=== PATIENT | female | born 1975 | race Caucasian/White ===

== ENCOUNTER 2017-12-20 22:17 | Emergency (ER) | payer SELFPAY ==
[~2017-12-20] VITALS: Ht 167.6 cm; Wt 59.0 kg
[2017-12-21 00:07] LABS: BASOPHILS % 1.4 % (0.0-2.0); EOSINOPHILS % 1.5 % (0.0-5.0); HEMATOCRIT. 31.1 % (36.0-48.0); HEMOGLOBIN. 10.3 g/dL (12.0-16.0); LYMPHOCYTES % 66.5 % (20.0-50.0); MEAN CORPUSCULAR HEMOGLOBIN 28.4 pg (28.0-32.0); MEAN CORPUSCULAR VOLUME 85.9 fL (81.0-99.0); MEAN PLATELET VOLUME 6.5 fl (7.4-10.4); MONOCYTES % 10.5 % (2.0-8.0); NEUTROPHILS % 20.1 % (40.0-76.0); PLATELET 216 x1000/uL (130-400); RED BLOOD CELL COUNT 3.62 mill/uL (4.2-5.4); RED CELL DISTRIBUTION WIDTH 19.9 % (11.6-14.6)
[2017-12-21 00:14] LABS: CHLORIDE 108 mEq/L (98-107)
[2017-12-21 00:30] VITALS: BP 98/65
[2017-12-21 00:43] LABS: ETHANOL BLOOD 408 mg/dL
== END 2017-12-21 00:52 | disposition home or self-care (01) ==
LOC: ER 22:17
DX: D72.819 Decreased white blood cell count, unspecified (principal); F10.129 Alcohol abuse with intoxication, unspecified; Y90.8 Blood alcohol level of 240 mg/100 ml or more; F91.8 Other conduct disorders; R10.2 Pelvic and perineal pain; Z59.0 Homelessness; S00.81XA Abrasion of other part of head, initial encounter; X58.XXXA Exposure to other specified factors, initial encounter; Y93.9 Activity, unspecified; Y92.9 Unspecified place or not applicable; F17.210 Nicotine dependence, cigarettes, uncomplicated
CPT/HCPCS: 36415; 80053; 84443; 85025; 99284; G0482; Z7610

== ENCOUNTER 2017-12-21 03:47 | Emergency (ER) | payer MEDICAID ==
[~2017-12-21] VITALS: Ht 167.6 cm; Wt 89.0 kg
[2017-12-21] MEDS ORDERED: DIPHENHYDRAMINE 50MG/ML VIAL IV ONE (06:45)
[2017-12-21] MEDS ORDERED: KETOROLAC 15MG/ML VIAL IV ONE (06:45)
[2017-12-21 07:50] VITALS: BP 135/84
== END 2017-12-21 08:32 | disposition home or self-care (01) ==
LOC: ER 03:47
DX: R51 Headache (principal); Z76.0 Encounter for issue of repeat prescription; I51.9 Heart disease, unspecified; Z59.0 Homelessness
CPT/HCPCS: 96374; 96375; 99284; J1200; J1885; Z7610